=== PATIENT | female | born 1990 ===

== ENCOUNTER 2016-11-22 18:24 | Emergency (ER) | payer OTHER ==
[~2016-11-22 18:24] MED LIST: IBUP800T28 PO; ONDA8TAB10 PO
[2016-11-22 18:30] VITALS: BP 123/75; PULSE 84; O2SAT 97
[2016-11-22 18:43] VITALS: BP 123/75; PULSE 84; RESP 16; O2SAT 97
--- NOTE | 2016-11-22 19:13 | ED.REPORT ---
HPI-Abd Pain F Under 40 Date of Service Nov 22, 2016 ED Provider: Doc,Ed MD History of Present Illness: 26-year-old female here for epigastric and left-sided abdominal pain 2 days. She is nauseous but not vomiting. She had 5 episodes of diarrhea yesterday and 2 today with possible blood in it. Pain was intermittent yesterday and today it is constant intermittent episodes of worsening. Nothing that she knows of makes it worse or better. no urinary symptoms. LMP was 4 days ago she ended yesterday. No vaginal discharge. Has had her gallbladder removed, otherwise has all organs. No Fevers or URI symptoms. Pain does not radiate. It is more epigastric and now it is moving to her mid/lower abdomen. Nursing Notes Stated Complaint: ABDOMINAL PAIN Chief Complaint: Female Abdominal Pain Allergies: Coded Allergies: acetaminophen (Unverified Adverse Reaction, Severe, ITCHING (FROM OXYCODONE), 11/21/14) oxycodone (Verified Adverse Reaction, Severe, ITCHING, 11/21/14) Scheduled Ondansetron ODT (Ondansetron ODT) 8 Mg Tab.rapdis 8 MG PO QID Sulfamethoxazole/Trimeth 800-160 mg (Bactrim DS 800-160 mg) 1 Each Tablet 1 TABLET PO BID Scheduled PRN Ibuprofen (Ibuprofen) 800 Mg Tablet 800 MG PO TID PRN PRN For Pain General Time Seen by MD: 19:12 Chief Complaint Abdominal pain, Diarrhea mild, Nausea Hx Obtained From: Patient Arrived By: Walk-in Onset Occurred: Yesterday Symptom Duration: Waxes and wanes Location: : Abdomen upper: LUQ Radiation: : Does not radiate Severity: Current: Severe Severity: Maximum: Severe Similar Sx Previous: No Past Medical History Past Medical History [id number] vaginal delivery Past Surgical History Right foot surgery Reports: Cholecystectomy Family History non-contributory Smoking History Current Every Day Smoker Social History Alcohol Use: Denies alcohol use Occupation Works in a [employer] Ambulatory Status Independent Review of Systems Basic Review of Systems Eyes: Vision NL ENT: Hearing NL Skin: No bruising Allergy / Immune: No allergy Neurologic: NL mental status Psychiatric: Normal thought content Constitutional: Denies: Fever Respiratory: Denies: Dyspnea on exertion Cardiovascular: Denies: Chest pain GI: Reports: Abdominal pain, Anorexia, Diarrhea, Nausea Female: Denies: Dysuria, Flank pain, Pelvic pain, Urinary frequency, Urinary urgency, Urination decreased, Urination increased, Vaginal bleeding - abnl Musculoskeletal: Denies: Back pain Complete sys rev & neg: except as marked. Physical Exam Initial Vital Signs Vital Signs (First) Date Time Temp Pulse Resp B/P Pulse Ox O2 Delivery O2 Flow Rate FiO2 11/22/16 18:43 36.5 84 16 123/75 97 Room Air Initial VS: Reviewed Head / Eyes: Atraumatic, Normocephalic, PERRL ENT: Mucous membranes moist, Conjunctiva normal, No scleral icterus Neck: Supple, Non-tender, Full range of motion Lymphatic: No lymphadenopathy Extremities: Vascular intact, Neuro intact, No swelling, No tenderness Skin: Warm, Dry, No cyanosis Neurologic: Alert, Oriented, Nonfocal Psychiatric: Mood/affect normal, Behavior normal, Normal thought content General/Constitutional: Awake, Alert Distress / Hydration: Positive: Distress mild Respiratory / Chest: Atraumatic, Breath sounds NL, Breath sounds = bilat, No respiratory distress Cardiovascular: Heart rate NL, Regular rhythm, Heart sounds NL, No gallop, No murmurs, No rubs Abdomen: Atraumatic, Soft Tenderness/Guarding/Rebound: Positive: Tender LUQ... (Moderate), Tender epigastric mild R CVA tenderness. no cva tenderness Interpretation & Diagnostics Lab Results Interpretation Result Diagram: 11/22/16193311/22/161933 Test 11/22/16 18:30 11/22/16 18:38 11/22/16 19:34 Urine Color Yellow (YELLOW) Urine Appearance Clear (CLEAR,HAZY) Urine pH 6.5 (5.0-8.0) Urine Specific [place] 1.010 (1.003-1.035) Urine Protein Negativemg/dL (NEG,TRACE) Urine Glucose (UA) Negativemg/dL (NEGATIVE) Urine Ketones Negativemg/dL (NEGATIVE) Urine Occult Blood Large (NEGATIVE) Urine Nitrite Negative (NEGATIVE) Urine Bilirubin Negative (NEGATIVE) Urine Urobilinogen Normalmg/dL (NORMAL) Urine Leukocyte Esterase Small (NEGATIVE) Urine RBC 3-10/hpf (0-2) Urine WBC 0-5/hpf (0-5) Urine Epithelial Cells None/hpf (NONE-MOD) Urine Crystals None seen (NONE SEEN) Urine Bacteria Few/hpf (NONE-FEW) Urine Hyaline Casts None/lpf (NONE) Urine Granular Casts None seen (NONE SEEN) Urine Waxy Casts None seen (NONE SEEN) Urine Red Blood Cell Casts None seen (NONE SEEN) Urine White Blood Cell Casts None seen (NONE SEEN) Urine Mucus None seen (None Seen) Urine Trichomonas None seen (NONE SEEN) Urine Yeast None (NONE SEEN) Urinalysis Comment None Urine Culture Reflexed Indicated Hold Urine Received (Received) White Blood Count 9.5th/mm3 (3.8-10.1) Red Blood Count 4.34mil/mm3 (3.90-5.20) Hemoglobin 12.2g/dL (12.0-15.6) Hematocrit 37.4% (35.0-46.0) Mean Corpuscular Volume 86.2fL (81-100) Mean Corpuscular Hemoglobin 28.1pg (27.0-35.0) Mean Corpuscular Hemoglobin Concent 32.6% (32.0-37.0) Red Cell Distribution Width 13.6% (12.3-15.4) Platelet Count 331bil/L (150-400) Neutrophils (%) (Auto) 66.2% (40-74) Lymphocytes (%) (Auto) 21.9% (14-46) Monocytes (%) (Auto) 7.2% (4-12) Eosinophils (%) (Auto) 4.2% (0-5) Basophils (%) (Auto) 0.3% (0-3) Sodium Level 141mEq/L (134-144) Potassium Level 3.9mEq/L (3.5-5.2) Chloride Level 107mEq/L (97-108) Carbon Dioxide Level 22mmol/L (18-29) Blood Urea Nitrogen 6mg/dL (6-20) Creatinine 0.59mg/dL (0.57-1.00) Estimat Glomerular Filtration Rate 176mL/min (>59) Glucose Level 104mg/dL (60-99) Calcium Level 7.6mg/dL (8.5-10.1) Total Bilirubin 0.2mg/dL (0.0-1.2) Aspartate Amino Transf (AST/SGOT) 21U/L (0-50) Alanine Aminotransferase (ALT/SGPT) 21U/L (0-32) Alkaline Phosphatase 133U/L (25-150) Total Protein 6.6g/dL (6.4-8.4) Albumin 3.6g/dL (3.4-5.0) Lipase 21U/L (13-60) Hold Heart Top Tube Received (Received) Re-Eval/Medical Decision Med Decision/Clinical Course Med Decision/Clinical Course: Patient status is improved pain is down. She does have mild right CVA tenderness will treat for pyelonephritis. Discussed pushing fluids and follow up with PCP Counseled Regarding: Diagnosis Discharge & Departure Shift Change Sign-Out Laboratory Evaluation: Lab evaluation discussed Response to Therapy: Improved Primary Impression: Pyelonephritis Disposition: Home Discharge Condition Condition: Stable Patient Instructions: Acute Pyelonephritis (ED) Additional Instructions: You were found to have a kidney infection today. Taken antibiotics as prescribed. Drink lots of fluids. Return to emergency room if you get high fevers or worsening pain. Otherwise follow-up with your doctor early next week. You can take ibuprofen as needed for pain. [facility]errals: [facility] Provider for APC: Sonja Baig MD, Linnea K ARNP Nov 22, 2016 19:13
[2016-11-22] MEDS ORDERED: 0.9% Sodium Chloride 1,000 ML IV ONE (19:22)
[2016-11-22] MEDS ORDERED: Ondansetron 2 mg/mL 2 mL Inj IVPUSH ONE (19:25)
[2016-11-22 19:46] LABS: BASOPHILS % (AUTO) 0.3 % (0-3); EOSINOPHILS % (AUTO) 4.2 % (0-5); MONOCYTES % (AUTO) 7.2 % (4-12); Mean Corpuscular Hemoglobin 28.1 pg (27.0-35.0); Mean Corpuscular Volume 86.2 fL (81-100); NEUTROPHILS % (AUTO) 66.2 % (40-74); Platelet Count 331 bil/L (150-400)
[2016-11-22 19:49] LABS: APPEARANCE,URINE CLEAR (CLEAR,HAZY); COLOR,URINE YELLOW (YELLOW); OCCULT BLOOD,URINE LARGE (NEGATIVE); PH,URINE 6.5 (5.0-8.0); UROBILINOGEN,URINE NORMAL (NORMAL)
--- NOTE | 2016-11-22 21:05 | DRSVH ---
PROCEDURE: X-RAY ACUTE ABDOMINAL SERIES ([id number]) INDICATIONS: abdominal pain TECHNIQUE: One view chest and two views of the abdomen were acquired. COMPARISON: None. FINDINGS: Surgical changes and devices: None. Chest: Lungs are clear. Heart size is normal. No pleural effusions. No pneumoperitoneum. Abdomen: Bowel gas pattern is normal. No suspicious calcifications. Visualized solid organ contour s appear normal. Bones: No suspicious bony lesions. IMPRESSION: No definite bowel obstruction at this time however repeat abdominal series radiographs co uld be performed if the patient's symptoms do not improve. Dictated by: Pedro Aldridge M.D. on 11/22/2016 at 21:03 Approved by: Pedro Aldridge M.D. on 11/22/2016 at 21:04
[2016-11-22] MEDS ORDERED: SULF1TAB35 PO (21:10)
[2016-11-22] MEDS ORDERED: Trimethoprim-Sulfa 160 mg-800 mg Tablet PO ONE (21:10)
[2016-11-22 21:22] VITALS: BP 103/66; RESP 16; O2SAT 98
== END 2016-11-22 21:25 | disposition home or self-care (01) ==
LOC: SED 18:24
DX: N12 Tubulo-interstitial nephritis, not specified as acute or chronic (principal); R19.7 Diarrhea, unspecified; Z88.5 Allergy status to narcotic agent; Z88.8 Allergy status to other drugs, medicaments and biological substances
CPT/HCPCS: 36415; 74022; 80053; 81000; 81025; 83690; 85025; 87086; 87088; 96361; 96374; 96375; 99285; J2405; J7030

== ENCOUNTER 2016-12-03 00:27 | Emergency (ER) | payer OTHER ==
[~2016-12-03] VITALS: Ht 162.6 cm; Wt 121.0 kg
[~2016-12-03 00:27] MED LIST changes: +SULF1TAB35 PO
[2016-12-03 00:29] VITALS: BP 116/85; PULSE 79; RESP 20; O2SAT 98
--- NOTE | 2016-12-03 00:38 | ED.REPORT ---
HPI-Back Pain Under 40 Date of Service Dec 03, 2016 ED Provider: Markus Medina MD Pt is a 26 y/o female presenting to the ED c/o lower back pain onset 14:00 today. The patient believes she twisted her back getting out of her car and heard a pop at that time. Her pain is greatly exacerbated with bending over. She had her dad attempt to pop her back and now her pain is worse. She denies numbness or weakness of her legs, difficulty walking, saddle anesthesia, bowel or bladder incontinence, fever. She denies falls or trauma. Nursing Notes Stated Complaint: LOW BACK PAIN Chief Complaint: Back Pain or Injury Nursing Notes Reviewed: Yes Allergies: Coded Allergies: acetaminophen (Unverified Adverse Reaction, Severe, ITCHING (FROM OXYCODONE), 11/21/14) oxycodone (Verified Adverse Reaction, Severe, ITCHING, 11/21/14) Scheduled Ondansetron ODT (Ondansetron ODT) 8 Mg Tab.rapdis 8 MG PO QID Sulfamethoxazole/Trimeth 800-160 mg (Bactrim DS 800-160 mg) 1 Each Tablet 1 TABLET PO BID Scheduled PRN Cyclobenzaprine (Cyclobenzaprine) 10 Mg Tablet 10 MG PO HS PRN PRN Spasm Ibuprofen (Ibuprofen) 800 Mg Tablet 800 MG PO TID PRN PRN For Pain Ibuprofen (Ibuprofen) 800 Mg Tablet 800 MG PO TID PRN PRN For Pain General Time Seen by MD: 00:37 Chief Complaint Lumbar pain Hx Obtained From: Patient Arrived By: Walk-in Sudden in Onset?: No Onset Occurred: 9 - 12 hours ago Symptom Duration: Since onset Location: : Perispinal lumbar Quality: Painful Radiation: : Does not radiate Severity: Current: Moderate Severity: Maximum: Moderate Recent Healthcare: No recent doctor visit, No recent hospitalization Similar Sx Previous: No Past Medical History Past Medical History [id number] vaginal delivery Past Surgical History Right foot surgery Reports: Cholecystectomy Family History non-contributory Smoking History Current Every Day Smoker Social History Alcohol Use: Denies alcohol use Occupation Works in a [employer] Ambulatory Status Independent Review of Systems Constitutional: Denies: Chills, Fever Musculoskeletal: Reports: Lumbar pain Neurologic: Denies: Bladder dysfunction, Bowel dysfunction, Numbness, Problem walking, Weakness Complete sys rev & neg: except as marked. Physical Exam Initial Vital Signs Vital Signs (First) Date Time Temp Pulse Resp B/P Pulse Ox O2 Delivery O2 Flow Rate FiO2 12/03/16 00:29 36.9 79 20 116/85 98 Room Air Initial VS: Reviewed, Vital signs normal Head / Eyes: Atraumatic, Normocephalic, PERRL ENT: Mucous membranes moist, Conjunctiva normal, No scleral icterus Neck: Supple, Full range of motion Respiratory: Breath sounds normal, Clear to auscultation, No respiratory distress Cardiovascular: Regular rate & rhythm, Heart sounds normal, Intact distal pulses Extremities: Vascular intact, Neuro intact, No swelling, No tenderness Skin: Warm, Dry, No cyanosis Psychiatric: Mood/affect normal, Behavior normal, Normal thought content General/Constitutional: Awake, Alert, No acute distress, Well appearing, Cooperative, Not toxic appearing Appearance / Presentation: Positive: Uncomfortable Back: Atraumatic, Full range of motion Right lumbar back tenderness Neurologic: Oriented X3, Speech NL, No motor deficits, No sensory deficits Abdomen: Atraumatic, Soft, Non-tender, No guarding, No rebound, No distention, No palpable mass Interpretation & Diagnostics Lab Results Interpretation Test 12/03/16 01:30 Hold Urine Received (Received) Re-Eval/Medical Decision Med Decision/Clinical Course 26-year-old female with right lower back pain after twisting motion getting out of car earlier today. No red flag symptoms. No midline tenderness. Patient was given Toradol and Flexeril and her symptoms improved. She will be given prescription for Flexeril and ibuprofen to use as needed. No heavy lifting times one week. Follow-up with primary doctor in 1 week if symptoms not resolved. Re-Evaluation/Progress : Time of Eval: 01:37 Patient Status: Condition improved, Moderate relief, Pain improved Re-Evaluation/Progress Note: Pt rechecked. Informed pt of plan for treatment. Pt understands and agrees with plan for treatment. F/U instructions and RTER warnings given. All questions addressed. Counseled Regarding: Diagnosis, Need for follow-up, When/why to return to ED Discharge & Departure Impression: Primary Impression: Back strain Encounter type: initial encounter Qualified Code: S39.012A - Strain of muscle, fascia and tendon of lower back, initial encounter Disposition: Home All VS Reviewed: Yes Condition: Stable Patient Instructions: Low Back Strain (ED) Additional Instructions: You likely strained your back today. Take extra strength Motrin, 800 mg every 8 hours as needed for pain. I recommend heat packs and stretching as well. Take the muscle relaxer as needed for muscle spasm. It causes drowsiness. Do not drink alcohol or drive while under the influence of this medication. I recommend no lifting over 10 pounds for 1 week. Follow-up with a primary care doctor in 1 week if your pain persists. Return to the emergency department if you pain increases, or for numbness or weakness of your legs, bowel or bladder incontinence, high fever, or other concerning symptoms. Referrals: [facility] ([facility]) Janet Attestation Portions of this note were transcribed by Willem Marvin. I, Dr. Medina, personally performed the history, physical exam and medical decision-making; I reviewed and confirmed the accuracy of the information in the transcribed note. Signed by Janet Norton, 12/03/16 - 0145 copies to: [facility] Ben M MD Dec 03, 2016 00:38 WILLEM MARVIN Dec 03, 2016 00:47
[2016-12-03] MEDS ORDERED: Ketorolac 30 mg/mL 2 mL Inj IM ONE (00:45)
[2016-12-03] MEDS ORDERED: IBUP800T28 PO (01:50)
[2016-12-03] MEDS ORDERED: CYCL10TA9 PO (01:50)
[2016-12-03 02:08] VITALS: BP 103/70; PULSE 77; RESP 18; O2SAT 99
== END 2016-12-03 02:06 | disposition home or self-care (01) ==
LOC: SED 00:27
DX: S39.012A Strain of muscle, fascia and tendon of lower back, initial encounter (principal); X50.1XXA Overexertion from prolonged static or awkward postures, initial encounter; Y92.9 Unspecified place or not applicable; Y93.89 Activity, other specified; Y99.8 Other external cause status; F17.200 Nicotine dependence, unspecified, uncomplicated; Z88.6 Allergy status to analgesic agent; Z88.5 Allergy status to narcotic agent
CPT/HCPCS: 81025; 96372; 99284; J1885

== ENCOUNTER 2017-02-03 00:32 | Emergency (ER) | payer OTHER ==
[~2017-02-03] VITALS: Ht 162.6 cm; Wt 121.4 kg
[~2017-02-03 00:32] MED LIST changes: +CYCL10TA9 PO
[2017-02-03 00:35] VITALS: BP 116/84; PULSE 97; RESP 16; O2SAT 100
--- NOTE | 2017-02-03 00:41 | ED.REPORT ---
HPI-Back Pain Under 40 Date of Service Feb 03, 2017 ED Provider: MD Jerman This is a 26 year old female presenting to the emergency department due to sudden onset lumbar back pain that began just prior to arrival after bending over to berry picker on object. Patient denies numbness or tingling in extremities, bowel or bladder incontinence, headache, nausea, or vomiting at this time. Nursing Notes Stated Complaint: LOW BACK PAIN Chief Complaint: Back Pain or Injury Nursing Notes Reviewed: Yes Allergies: Coded Allergies: acetaminophen (Unverified Adverse Reaction, Severe, ITCHING (FROM OXYCODONE), 11/21/14) oxycodone (Verified Adverse Reaction, Severe, ITCHING, 11/21/14) Scheduled Ondansetron ODT (Ondansetron ODT) 8 Mg Tab.rapdis 8 MG PO QID Sulfamethoxazole/Trimeth 800-160 mg (Bactrim DS 800-160 mg) 1 Each Tablet 1 TABLET PO BID Scheduled PRN Cyclobenzaprine (Cyclobenzaprine) 10 Mg Tablet 10 MG PO HS PRN PRN Spasm Ibuprofen (Ibuprofen) 800 Mg Tablet 800 MG PO TID PRN PRN For Pain Ibuprofen (Ibuprofen) 800 Mg Tablet 800 MG PO TID PRN PRN For Pain Ibuprofen (Ibuprofen) 600 Mg Tablet 600 MG PO QID PRN PRN For Pain Methocarbamol (Robaxin-750) 750 Mg Tablet 1-2 TAB PO QID PRN PRN For Spasm General Time Seen by MD: 00:41 Chief Complaint Lumbar pain Hx Obtained From: Patient Arrived By: Walk-in Sudden in Onset?: Yes Onset Occurred: Just prior to arrival Symptom Duration: Since onset Severity: Current: Moderate Pertinent Negative: Pt denies other symptoms Recent Healthcare: No recent doctor visit, No recent hospitalization Similar Sx Previous: No Past Medical History Past Medical History [id number] vaginal delivery Past Surgical History Right foot surgery Reports: Cholecystectomy Family History non-contributory Smoking History Current Every Day Smoker Social History Alcohol Use: Denies alcohol use Occupation Works in a [employer] Ambulatory Status Independent Review of Systems Constitutional: Denies: Chills, Fever Cardiovascular: Denies: Chest pain GI: Denies: Nausea, Vomiting Female: Denies: Flank pain Musculoskeletal: Reports: Back pain, Denies: Extremity pain Neurologic: Denies: Weakness Complete sys rev & neg: except as marked. Physical Exam Initial Vital Signs Vital Signs (First) Date Time Temp Pulse Resp B/P Pulse Ox O2 Delivery O2 Flow Rate FiO2 02/03/17 00:35 36.0 97 16 116/84 100 Room Air Initial VS: Reviewed Head / Eyes: Atraumatic, Normocephalic, PERRL ENT: Mucous membranes moist, Conjunctiva normal, No scleral icterus Neck: Supple, Non-tender, Full range of motion Respiratory: Breath sounds normal, Clear to auscultation, No respiratory distress Cardiovascular: Regular rate & rhythm, Heart sounds normal, Intact distal pulses Extremities: Vascular intact, Neuro intact, No swelling, No tenderness Skin: Warm, Dry, No cyanosis Psychiatric: Mood/affect normal, Behavior normal, Normal thought content General/Constitutional: Awake, Alert Back: No midline vertebral tend Tenderness to palpation to lumbar paraspinal muscles Neurologic: Oriented X3, Speech NL, No motor deficits, No sensory deficits, Reflexes equal bilat Re-Eval/Medical Decision Med Decision/Clinical Course 26-year-old with chronic back pain presents with an exacerbation after bending over to berry picker an ashtray. No radiation symptoms. No incontinence. Pain is confined to paraspinous muscles in the low lumbar area. Home with Robaxin, ibuprofen. Follow up with PCP. Re-Evaluation/Progress : Time of Eval: 02:03 Re-Evaluation/Progress Note: Discussed plan for discharge, all questions addressed. Counseled Regarding: Diagnosis, Lab results, Need for follow-up, When/why to return to ED Discharge & Departure Impression: Primary Impression: Lumbosacral strain Encounter type: initial encounter Qualified Code: S39.012A - Strain of muscle, fascia and tendon of lower back, initial encounter Additional Impression: Low back pain Disposition: Home All VS Reviewed: Yes Condition: Stable Patient Instructions: Acute Low Back Pain (ED), Low Back Strain (ED) Additional Instructions: Patient very careful attention to posture. Do not bend over, but instead squat when he must reach down. Heat to the effected area three or four times daily. Rest for the next 4-5 days as much as possible and then slowly resume normal activities. Ibuprofen four times daily. Robaxin four times daily. Follow-up with your doctor in the office. Referrals: [facility] ([facility]) Scribe Attestation Portions of this note were transcribed by Shell Pardo. Dr. Jerman Mendoza personally performed the history, physical exam and medical decision-making; I reviewed and confirmed the accuracy of the information in the transcribed note. Signed by Janet Rivera, 02/02/2017 at 06:00. copies to: [facility],Ricardo Bauer MD Feb 03, 2017 00:41 SHELL PARDO Feb 03, 2017 00:43
[2017-02-03] MEDS ORDERED: LORazepam 2 mg Tablet PO ONE (01:15)
[2017-02-03] MEDS ORDERED: IBUP-1827 PO (02:02)
[2017-02-03] MEDS ORDERED: METH-313 PO (02:02)
[2017-02-03 02:13] VITALS: BP 116/84; PULSE 97; RESP 16; O2SAT 100
== END 2017-02-03 02:15 | disposition home or self-care (01) ==
LOC: SED 00:32
DX: S39.012A Strain of muscle, fascia and tendon of lower back, initial encounter (principal); X50.1XXA Overexertion from prolonged static or awkward postures, initial encounter; Y92.9 Unspecified place or not applicable; Y93.89 Activity, other specified; Y99.8 Other external cause status; M54.5 Low back pain; G89.29 Other chronic pain; F17.200 Nicotine dependence, unspecified, uncomplicated; Z88.6 Allergy status to analgesic agent; Z88.5 Allergy status to narcotic agent
CPT/HCPCS: 96372; 99283; J1885